=== PATIENT | female | born 1990 ===

== ENCOUNTER → 2021-02-24 | Outpatient (CLI) | payer OTHER | LOC: MC.RAD 09:40 | DX: N63.10 Unspecified lump in the right breast, unspecified quadrant (principal) ==

== ENCOUNTER → 2022-07-28 | Outpatient (CLI) | payer OTHER | LOC: MC.RAD 09:23 | DX: N63.10 Unspecified lump in the right breast, unspecified quadrant (principal); N63.20 Unspecified lump in the left breast, unspecified quadrant; N64.52 Nipple discharge ==